=== PATIENT | male | born 1975 | race Caucasian/White ===

== ENCOUNTER 2025-10-03 18:11 | Emergency (ER) | payer SELFPAY ==
[~2025-10-03] VITALS: Ht 170.2 cm; Wt 68.0 kg
[2025-10-03 18:16] VITALS: O2SAT 99
[2025-10-04 00:11] LABS: CLARITY URINE CLEAR (CLEAR); COLOR URINE YELLOW (YELLOW); GLUCOSE URINE NEGATIVE (NEGATIVE); KETONES URINE TRACE (NEGATIVE); LEUKOCYTE ESTERASE URINE NEGATIVE (NEGATIVE); NITRITE URINE NEGATIVE (NEGATIVE); OCCULT BLOOD URINE NEGATIVE (NEGATIVE); PH URINE 5.5 (4.5-8.0); PROTEIN URINE NEGATIVE (NEGATIVE); SPECIFIC GRAVITY URINE 1.021 (1.005-1.030); UROBILINOGEN URINE 1.0 E.U./dL (0.2-1.0)
[2025-10-04 01:02] VITALS: BP 132/94; PULSE 67; RESP 12; TEMP 36.8; O2SAT 98
== END 2025-10-04 01:06 | disposition home or self-care (01) ==
LOC: ER 18:11
DX: K40.90 Unilateral inguinal hernia, without obstruction or gangrene, not specified as recurrent (principal); N44.8 Other noninflammatory disorders of the testis
CPT/HCPCS: 76870; 81003; 93976; 99284